=== PATIENT | male | born 1960 | race Caucasian/White ===

== ENCOUNTER 2017-08-29 09:38 | Inpatient (IN) | payer OTHER ==
[~2017-08-29] VITALS: Ht 154.9 cm; Wt 53.8 kg
[~2017-08-29 09:38] MED LIST: Amoxil400 MG/5 M PO; CEPH500 PO; Cerovite Advan1 EACH PO; Coenzyme Q10100 M1 PO; Hair, Skin & N1 EACH PO; LEVO-T112 MCG PO; LEVSOD100 PO; Miralax17 GM PO; TAMS.4ER PO
[2017-08-29] MEDS ORDERED: LEVSOD100 PO (10:10)
[2017-08-29 10:49] LABS: BASOPHILS ABSOLUTE AUTO 0.02 K/mm3 (0.00-0.23); BASOPHILS PERCENT AUTO 0 % (0-2); EOSINOPHILS PERCENT AUTO 0 % (0-6); Hematocrit 35.2 % (37.0-53.0); Hemoglobin 12.5 g/dL (13.5-17.5); IMMATURE GRAN ABSOLUTE AUTO 0.12 K/mm3 (0.00-0.10); IMMATURE GRAN PERCENT AUTO 1 % (0-1); LYMPHOCYTES ABSOLUTE AUTO 0.25 K/mm3 (0.84-5.20); LYMPHOCYTES PERCENT AUTO 1 % (21-46); MONOCYTES ABSOLUTE AUTO 0.53 K/mm3 (0.16-1.47); MONOCYTES PERCENT AUTO 3 % (4-13); Mean Corpuscular HGB 31.8 pg (26.0-34.0); Mean Corpuscular HGB Conc 35.5 g/dL (31.5-36.5); Mean Corpuscular Volume 90 fL (80-100); NEUTROPHILS ABSOLUTE AUTO 16.92 K/mm3 (1.96-9.15); NEUTROPHILS PERCENT AUTO 95 % (41-73); Platelet Count 189 K/mm3 (150-400); RDW Coefficient Variation 14.9 % (11.7-14.2); RDW Standard Deviation 49.8 fL (35.1-46.3); Red Blood Cell Count 3.93 M/mm3 (4.30-5.90); White Blood Cell Count 17.84 K/mm3 (4.00-11.30)
[2017-08-29 11:05] LABS: Alanine Aminotransfer (ALT/SGP 26 U/L (12-78); Albumin, Blood 2.7 g/dL (3.4-5.0); Albumin/Globulin Ratio 0.7 (0.8-1.8); Alk Phos 58 U/L (50-136); Anion Gap 12 mmol/L (6-16); Aspartate Aminotrans (AST/SGOT 41 U/L (12-37); Bilirubin, Total 0.6 mg/dL (0.1-1.0); Blood Urea Nitrogen 20 mg/dL (8-24); Bun/Creatinine Ratio 16.5 (12.0-20.0); CO2, Blood 24 mmol/L (21-32); Calcium, Blood 8.6 mg/dL (8.5-10.1); Chloride, Blood 92 mmol/L (98-108); Creatinine, Blood 1.21 mg/dL (0.60-1.20); Globulin, Blood 4.1 g/dL (2.2-4.0); Glomerular Filtration Rate >60 (60-); Glucose, Blood 125 mg/dL (70-99); Potassium, Blood 3.5 mmol/L (3.5-5.5); Sodium, Blood 128 mmol/L (136-145); Total Protein, Blood 6.8 g/dL (6.4-8.2)
[2017-08-29 18:23] LABS: Source, Urine Voided
[2017-08-29 18:28] LABS: Appearance, Urine Clear (Clear); Bilirubin, Urine Neg (Neg); Blood, Urine 1+ (Neg); Color, Urine Yellow (P-Yellow); Glucose Qualitative, Urine Neg (Neg); Ketones, Urine 1+ (Neg); Leukocyte Esterase, Urine Neg (Neg); Nitrite, Urine Neg (Neg); Protein, Urine 1+ (Neg); Urobilinogen, Urine NORM (Normal)
[2017-08-29 18:33] LABS: Amorphous Light (0-Heavy); Bacteria Few /hpf; Red Blood Cells, Urine 0-2 /hpf (0-2); Squamous Epithelial Cells Not Seen /hpf (Few); White Blood Cells, Urine 0-2 /hpf (0-5)
[2017-08-29 18:34] LABS: Hyaline Casts 0-2 /lpf (0-2)
[2017-08-30 05:17] LABS: Hematocrit 29.3 % (37.0-53.0); Hemoglobin 10.4 g/dL (13.5-17.5); Mean Corpuscular HGB 31.6 pg (26.0-34.0); Mean Corpuscular HGB Conc 35.5 g/dL (31.5-36.5); Mean Corpuscular Volume 89 fL (80-100); Mean Platelet Volume 9.2 fL (9.1-12.4); Platelet Count 161 K/mm3 (150-400); RDW Coefficient Variation 15.2 % (11.7-14.2); RDW Standard Deviation 49.5 fL (35.1-46.3); Red Blood Cell Count 3.29 M/mm3 (4.30-5.90); White Blood Cell Count 12.59 K/mm3 (4.00-11.30)
[2017-08-30 05:35] LABS: BAND PERCENT MAN 23 % (0-8); BASOPHILS PERCENT MAN 0 % (0-2); EOSINOPHILS PERCENT MAN 0 % (0-6); LYMPHOCYTES ABSOLUTE MAN 0.25 K/mm3 (0.84-5.20); LYMPHOCYTES PERCENT MAN 2 % (21-46); MONOCYTES PERCENT MAN 4 % (4-13); NEUTROPHILS ABSOLUTE MAN 11.83 K/mm3 (1.96-9.15); SEG NEUTROPHILS PERCENT MAN 71 % (41-73); TOTAL CELLS COUNTED 100
[2017-08-30 05:41] LABS: Alanine Aminotransfer (ALT/SGP 17 U/L (12-78); Albumin, Blood 2.1 g/dL (3.4-5.0); Albumin/Globulin Ratio 0.6 (0.8-1.8); Alk Phos 47 U/L (50-136); Anion Gap 11 mmol/L (6-16); Aspartate Aminotrans (AST/SGOT 30 U/L (12-37); Bilirubin, Total 0.4 mg/dL (0.1-1.0); Blood Urea Nitrogen 11 mg/dL (8-24); Bun/Creatinine Ratio 12.1 (12.0-20.0); CO2, Blood 20 mmol/L (21-32); Calcium, Blood 7.5 mg/dL (8.5-10.1); Chloride, Blood 99 mmol/L (98-108); Creatinine, Blood 0.91 mg/dL (0.60-1.20); Globulin, Blood 3.6 g/dL (2.2-4.0); Glomerular Filtration Rate >60 (60-); Glucose, Blood 103 mg/dL (70-99); Potassium, Blood 3.7 mmol/L (3.5-5.5); Sodium, Blood 130 mmol/L (136-145); Total Protein, Blood 5.7 g/dL (6.4-8.2)
[2017-08-31 04:55] LABS: Hematocrit 30.3 % (37.0-53.0); Hemoglobin 10.6 g/dL (13.5-17.5); Mean Corpuscular HGB 31.7 pg (26.0-34.0); Mean Corpuscular Volume 91 fL (80-100); Platelet Count 187 K/mm3 (150-400); RDW Coefficient Variation 16.1 % (11.7-14.2); RDW Standard Deviation 53.7 fL (35.1-46.3); Red Blood Cell Count 3.34 M/mm3 (4.30-5.90); White Blood Cell Count 13.29 K/mm3 (4.00-11.30)
[2017-08-31 05:21] LABS: Anion Gap 9 mmol/L (6-16); Blood Urea Nitrogen 10 mg/dL (8-24); CO2, Blood 24 mmol/L (21-32); Calcium, Blood 7.9 mg/dL (8.5-10.1); Chloride, Blood 101 mmol/L (98-108); Creatinine, Blood 0.83 mg/dL (0.60-1.20); Glomerular Filtration Rate >60 (60-); Glucose, Blood 90 mg/dL (70-99); Potassium, Blood 3.7 mmol/L (3.5-5.5); Sodium, Blood 134 mmol/L (136-145)
[2017-09-01] MEDS ORDERED: CEPH500 PO (16:41)
== END 2017-09-01 18:21 | DRG 872 ==
LOC: ER 09:38 → MEDS 09:39 → ENPENDDIS 09-01 10:59 → MEDS 09-01 18:21
PROVIDERS: Emergency Medicine; Internal Medicine
DX: A41.9 Sepsis, unspecified organism (principal); L03.312 Cellulitis of back [any part except buttock and flank]; L03.319 Cellulitis of trunk, unspecified; L03.116 Cellulitis of left lower limb; L03.115 Cellulitis of right lower limb; N17.9 Acute kidney failure, unspecified; E87.1 Hypo-osmolality and hyponatremia; E03.9 Hypothyroidism, unspecified; Q90.9 Down syndrome, unspecified; N40.0 Benign prostatic hyperplasia without lower urinary tract symptoms; D64.9 Anemia, unspecified; E87.6 Hypokalemia
CPT/HCPCS: 36415; 71046; 74176; 80048; 80053; 81001; 83605; 84443; 85025; 85027; 96361; 96374; 99285; J0690; J1650; J3480; J7030

== ENCOUNTER 2018-04-22 23:00 | Inpatient (IN) | payer OTHER ==
[~2018-04-22] VITALS: Ht 154.9 cm; Wt 59.4 kg
[2018-04-23 00:51] LABS: BASOPHILS ABSOLUTE AUTO 0.03 K/mm3 (0.00-0.23); BASOPHILS PERCENT AUTO 0 % (0-2); EOSINOPHILS PERCENT AUTO 0 % (0-6); Hematocrit 32.5 % (37.0-53.0); Hemoglobin 11.2 g/dL (13.5-17.5); IMMATURE GRAN ABSOLUTE AUTO 0.06 K/mm3 (0.00-0.10); IMMATURE GRAN PERCENT AUTO 1 % (0-1); LYMPHOCYTES PERCENT AUTO 8 % (21-46); MONOCYTES ABSOLUTE AUTO 0.37 K/mm3 (0.16-1.47); MONOCYTES PERCENT AUTO 3 % (4-13); Mean Corpuscular HGB 32.3 pg (26.0-34.0); Mean Corpuscular HGB Conc 34.5 g/dL (31.5-36.5); Mean Corpuscular Volume 94 fL (80-100); Mean Platelet Volume 9.4 fL (9.1-12.4); NEUTROPHILS ABSOLUTE AUTO 11.81 K/mm3 (1.96-9.15); NEUTROPHILS PERCENT AUTO 89 % (41-73); Platelet Count 282 K/mm3 (150-400); RDW Coefficient Variation 15.1 % (11.7-14.2); RDW Standard Deviation 52.1 fL (35.1-46.3); Red Blood Cell Count 3.47 M/mm3 (4.30-5.90); White Blood Cell Count 13.27 K/mm3 (4.00-11.30)
[2018-04-23 01:11] LABS: Alanine Aminotransfer (ALT/SGP 36 U/L (12-78); Albumin, Blood 2.5 g/dL (3.4-5.0); Albumin/Globulin Ratio 0.6 (0.8-1.8); Alk Phos 63 U/L (50-136); Anion Gap 9 mmol/L (6-16); Aspartate Aminotrans (AST/SGOT 37 U/L (12-37); Bilirubin, Total 0.5 mg/dL (0.1-1.0); Blood Urea Nitrogen 12 mg/dL (8-24); Bun/Creatinine Ratio 10.5 (12.0-20.0); CO2, Blood 28 mmol/L (21-32); Chloride, Blood 97 mmol/L (98-108); Creatinine, Blood 1.14 mg/dL (0.60-1.20); Globulin, Blood 4.3 g/dL (2.2-4.0); Glomerular Filtration Rate >60 (60-); Glucose, Blood 104 mg/dL (70-99); Potassium, Blood 3.4 mmol/L (3.5-5.5); Sodium, Blood 134 mmol/L (136-145); Total Protein, Blood 6.8 g/dL (6.4-8.2)
--- NOTE | 2018-04-23 04:06 | NUR ---
[place] of Care/Admission: Patient arrived to unit at approx 0300hr, via stretcher, accompanied by ED nurse. Transferred to ICU bed without difficulty. Denies pain, and no s/s of pain or discomfort. Pleasant and cooperative with staff, smiling, stating "I like you". Patient has Dx of Down Syndrome, and his caregivers left facility before admission to unit. Therefore, unable to assess patient's baseline mentation/orientation, but patient does appear to be at baseline r/t report from ED nurse. Patient alert, oriented to self. Verbalizes only short statements (i.e "I like you", or "I'm good".) No s/s of respiratory distress, O2-97% on RA. Heart rate shows NSR, rate- 80's. Systolic BP in 70's-80's, contacted Dr. Jeter and received order for x2 liter bolus of NS. Peripheral IV to LFA patent and intact. Peripheral IV to RAC not patent and D/C'd at this time, new IV placed to LFA. Red, diffuse, non-raised rash noted to ABD, back, and bilateral lower extremities (see pics in chart). Oriented to room and call light, left in reach. Will continue to monitor for pain, safety, comfort.
--- NOTE | 2018-04-23 06:09 | NUR ---
Shift Summary: Patient continues to appear calm and comfortable, denies pain. Systolic BP continues in 70's-80's after x2 L bolus, BP confirmed with manual assessment. Also attempted to have patient void in urinal, but he was unable to produce any urine, bladder scan showed approx 150ml, bladder soft with palpation. Again contacted Dr. Jeter and received order for x1L NS bolus, then resume fluids at 200ml/hr. Also received order for UA and U-tox when patient is able to void. Peripheral IV's remain patent and intact. Calm and cooperative with staff. Will continue to monitor for pain, safety, comfort.
--- NOTE | 2018-04-23 11:37 | NUR ---
0730 PT BP NOTED TO BE LOW AND DR RAJPUT ORDERED PICC AND LEVOPHED GTT. PT NEEDING ASSIST TO HOLD STILL WITH PICC PLACEMENT BUT WAS COOP, JUST SOMEWHAT AFRAID OF THE UNKNOWN. LR CHANGE AND LEVOPHED TO FOLLOW SOY.
[2018-04-23 17:19] LABS: Bilirubin, Urine Neg (Neg); Blood, Urine Neg (Neg); Glucose Qualitative, Urine Neg (Neg); Ketones, Urine 3+ (Neg); Leukocyte Esterase, Urine 1+ (Neg); Nitrite, Urine Neg (Neg); Protein, Urine 2+ (Neg); Source, Urine Clean Catch; Urobilinogen, Urine NORM (Normal)
[2018-04-23 17:31] LABS: U Amphetamine Screen Not Detected; U Barbituate Screen Not Detected; U Benzodiazapine Screen Not Detected; U Buprenorphine Screen Not Detected; U Cannabinoids Screen Not Detected; U Cocaine Screen Not Detected; U Methadone Screen Not Detected; U Methamphetamine Screen Not Detected; U Opiates Screen Not Detected; U Oxycodone Screen Not Detected; U Phencyclidine Screen Not Detected; U Propoxyphene Screen Not Detected
[2018-04-23 17:34] LABS: Appearance, Urine Clear (Clear); Color, Urine Yellow (P-Yellow)
[2018-04-23 17:35] LABS: Red Blood Cells, Urine 0-2 /hpf (0-2)
[2018-04-23 17:37] LABS: Bacteria Mod /hpf; Squamous Epithelial Cells Rare /hpf (Few)
--- NOTE | 2018-04-23 18:18 | NUR ---
PT IS DOWN TO 5 MCG OF LEVOPHED AND LR AT 200ML. TAKING PO AND RESTING WELL. PT WAS UP TO VOID AT BSC BUT COULD NOT VOID IN URINAL. URINE WAS STRONG SMELLING AND DARK DEVENDRA COLOR. VS NOTED AND PT REMAINS IN SR SB. W/O DISTRESS OR C/O PAIN. ONLY NOTED TO HAVE SKIN ITCHING EARLIER WHILE DR ZARAGOZA WAS IN. CAREGIVER WAS IN AND WILL BRING GLASSES AND DENTURES TOMORROW.
--- NOTE | 2018-04-23 19:00 | NUR ---
[place] of Care: Patient alert and oriented to self (baseline per Down Syndrome Dx). Denies pain, discomfort, SOB, or dyspnea. VSS, O2-98% on RA. Currently on Levophed gtt at 4mcg/min, will monitor BP and titrate as indicated. LR infusing at 200ml/hr without difficulty. PICC line patent and intact. Peripheral IV to lt wrist patent and intact. Holding Flu vaccine at this time as patient has diffuse rash, concern that current rash could mask reaction to vaccine. No change to rash noted r/t admission last NOC. Rash continues as diffuse throughout back, ABD, BLE's. Only x1 400ml void on day shift, denies need to void at this time, bladder soft upon palpation. Will continue to monitor and possibly bladder scan patient if indicated. Appears calm and comfortable, watching TV. Will continue to monitor for pain, safety, comfort.
[2018-04-24 04:08] LABS: Anion Gap 8 mmol/L (6-16); Blood Urea Nitrogen 11 mg/dL (8-24); Bun/Creatinine Ratio 13.7 (12.0-20.0); CO2, Blood 24 mmol/L (21-32); Calcium, Blood 7.4 mg/dL (8.5-10.1); Chloride, Blood 108 mmol/L (98-108); Creatinine, Blood 0.81 mg/dL (0.60-1.20); Glomerular Filtration Rate >60 (60-); Glucose, Blood 102 mg/dL (70-99); Potassium, Blood 3.8 mmol/L (3.5-5.5); Sodium, Blood 140 mmol/L (136-145)
--- NOTE | 2018-04-24 05:59 | NUR ---
Shift Summary: Patient slept on/off throughout shift. Continues to deny pain or discomfort. No change in rash noted, continues to be diffuse throughout back, ABD, BLE's. Levophed titrated down from 4mcg/min to stand-by at approx 0100hr, remained off throughout remainder of shift. BP stable, MAP's 70's-80's. X2 transfers to toilet in room to void, stand-by assist without difficulty. Total of 550ml urine output, dark yell, clear urine. Audible wheezes and c/o dyspnea at approx 0300hr, lung sounds clear and O2-96-98% at this time. Contacted Dr. Jeter and received order for prn Albuterol updrafts, and to decrease LR from 200ml/hr to 100ml/hr. X1 prn Albuterol given, effective to decrease audible wheezes. Calm and cooperative with staff, sleeping at this time. Will continue to monitor until report to day shift RN.
--- NOTE | 2018-04-24 08:50 | NUR ---
RECEIVED REPORT AND ASSUMED CARE OF PATIENT. HE IS SITTING UP IN BED, ALERT AND PLEASANT. PT HAS LR RUNNING AT 100 ML/HR AND HIS ABX STARTED. LUNG SOUNDS ARE CLEAR. PT IS ON ROOM AIR. HE STATES NO PAIN AT THIS TIME. WILL CONTINUE TO MONITOR.
--- NOTE | 2018-04-24 19:15 | NUR ---
ASSUMED PT CARE PT SITTING UP IN BED WATCHING CARTOONS. STATED HE WAS "FULL" FROM DINNER AND ATE ABOUT 75% AND DRANK 100% SUPPLEMENT DRINK. PT ABLE TO AMBULATE WITH MINIMAL ONE PERSON ASSIST. PT IS AWARE OF HIS LIMITATIONS. ALERT AND ORIENTED TO SELF, BUT CAREGIVER STATES THIS IS HIS BASELINE PER REPORTING RNJORGE.
--- NOTE | 2018-04-24 19:23 | NUR ---
PT HAD A GOOD DAY, PLEASANT AFFECT THROUGHOUT THE SHIFT. PT ENJOYS DRAWING AND WATCHING CARTOONS. NO SIGNIFICANT CHANGES. VITAL SIGNS ARE STABLE. PT IS SBA, HE GETS UP TO VOID IN BSC. WILL CONTINUE TO MONITOR AND GIVE REPORT TO FRANKLYN CASTILLO.
[2018-04-25 03:12] LABS: HIV SCREEN 4TH GENERATION WRFX Non Reactive (Non Reactive)
--- NOTE | 2018-04-25 06:24 | NUR ---
END OF SHIFT SUMMARY PT HAS SLEPT T/O ENTIRE NIGHT; ABLE TO REPOSITION SELF. RASH REMAINS TO TRUNK, BILATERAL ARMS AND LEGS. NO FEVER THIS SHIFT. PT IS VERY PLEASANT AND COOPERATIVE. FEARFUL OF CARE AT TIMES; LOTS OF EDUCATIONS AND KEEPING PT AWARE OF WHAT IS GOING ON. NO SIGNS OF ACUTE DISTRESS NOTED.
--- NOTE | 2018-04-25 18:12 | NUR ---
SHIFT SUMMARY PATIENT PLEASANT. NO ACUTE CONCERNS. AWAITING CULTURES SO PATIENT CAN BE SWITCHED TO ORAL ANTIBIOTICS. PATIENT HAS PICC IN LEFT UPPER ARM. WILL MONITOR FOR ANY CHANGES.
--- NOTE | 2018-04-26 06:47 | NUR ---
PT ALERT ABLE TO TOLERATE DIET AND ACTIVITY. UP WITH 1 MIN ASSIST TO AMB TO BR, VOIDS LARGE AMTS AND HAD BM. PT HAS ANEMIA AND HE FLUSHED STOOL BUT NOTED PALE BLOOD ON TISSUE. VSS .
--- NOTE | 2018-04-26 17:29 | NUR ---
SHIFT SUMMARY PATIENT PLEASANT. NO ACUTE CONCERNS AT THIS TIME. HE HAS BEEN SWITCHED TO ORAL ANTIBIOTICS. PICC LINE STILL IN PLACE. POTENTIAL DISCHARGE TOMORROW.
--- NOTE | 2018-04-27 08:08 | NUR ---
04/27/18 0615 CHEERFUL AND DENIES ANY PAIN. TAKING FLUIDS WELL. VITALS STABLE. UNEVENTFUL NIGHT.
--- NOTE | 2018-04-27 08:45 | NUR ---
PT PLEASANT COOP DEV DELAY, ABLE TO TELL ME NAME VERY HARD TO UNDERSTAND. H/R REG, NO MURMER NOTED. NO TELE. LUNGS CLEAR, RESP EASY, UNLABORED. ON R.A. BT X4 LAST BM THIS AM. VOIDS PER BATHROOM. 1 ASST. BED IN LOW POSITION, CALL LITE IN REACH, BED ALARM ON FOR SAFETY
[2018-04-27] MEDS ORDERED: CEFP200 PO (10:05)
== END 2018-04-27 13:39 | disposition home or self-care (01) | DRG 871 ==
LOC: ER 23:00 → ICUW 04-23 02:02 → ICUE 04-23 02:02 → MEDS 04-25 14:25 → ENPENDDIS 04-27 11:19 → MEDS 04-27 13:39
PROVIDERS: Internal Medicine; Internal Medicine Infectious Disease; Physician Assistant; ADMIT Hospitalist
PROC: 02HV33Z Insertion of Infusion Device into Superior Vena Cava, Percutaneous Approach (ICD-10-PCS; principal; 2018-04-23)
PROC: B548ZZA Ultrasonography of Superior Vena Cava, Guidance (ICD-10-PCS; 2018-04-23)
DX: A41.9 Sepsis, unspecified organism (principal); R65.21 Severe sepsis with septic shock; E87.1 Hypo-osmolality and hyponatremia; E87.6 Hypokalemia; E03.9 Hypothyroidism, unspecified; N40.0 Benign prostatic hyperplasia without lower urinary tract symptoms; I95.9 Hypotension, unspecified; Q90.9 Down syndrome, unspecified; Z79.899 Other long term (current) drug therapy
CPT/HCPCS: 36415; 36569; 80048; 80053; 80202; 81001; 83605; 85025; 87040; 87070; 87086; 87389; 90686; 94760; 96361; 96365; 96367; 96375; 99285-25; C1751; J0696; J1650; J1885; J3370; J3480; J7030; J7060; J7120

== ENCOUNTER 2019-05-28 01:01 | Inpatient (IN) | payer OTHER ==
[~2019-05-28] VITALS: Ht 144.8 cm; Wt 53.0 kg
[~2019-05-28 01:01] MED LIST changes: +CEFP200 PO; +LEVSOD112 PO
[2019-05-28] MEDS ORDERED: Ascorbic Acid500 M2 PO (01:13)
[2019-05-28 01:49] LABS: BASOPHILS ABSOLUTE AUTO 0.03 K/mm3 (0.00-0.23); BASOPHILS PERCENT AUTO 0 % (0-2); EOSINOPHILS PERCENT AUTO 0 % (0-6); Hematocrit 34.7 % (37.0-53.0); Hemoglobin 12.2 g/dL (13.5-17.5); IMMATURE GRAN ABSOLUTE AUTO 0.07 K/mm3 (0.00-0.10); IMMATURE GRAN PERCENT AUTO 1 % (0-1); LYMPHOCYTES ABSOLUTE AUTO 0.72 K/mm3 (0.84-5.20); LYMPHOCYTES PERCENT AUTO 5 % (21-46); MONOCYTES ABSOLUTE AUTO 0.55 K/mm3 (0.16-1.47); MONOCYTES PERCENT AUTO 4 % (4-13); Mean Corpuscular HGB 32.5 pg (26.0-34.0); Mean Corpuscular HGB Conc 35.2 g/dL (31.5-36.5); Mean Corpuscular Volume 93 fL (80-100); Mean Platelet Volume 9.2 fL (9.1-12.4); NEUTROPHILS PERCENT AUTO 91 % (41-73); Platelet Count 223 K/mm3 (150-400); RDW Coefficient Variation 13.7 % (11.7-14.2); RDW Standard Deviation 46.8 fL (35.1-46.3); Red Blood Cell Count 3.75 M/mm3 (4.30-5.90); White Blood Cell Count 14.37 K/mm3 (4.00-11.30)
[2019-05-28 01:51] LABS: Alanine Aminotransfer (ALT/SGP 19 U/L (12-78); Albumin, Blood 2.8 g/dL (3.4-5.0); Albumin/Globulin Ratio 0.7 (0.8-1.8); Alk Phos 52 U/L (50-136); Anion Gap 9 mmol/L (6-16); Aspartate Aminotrans (AST/SGOT 27 U/L (12-37); Bilirubin, Total 0.5 mg/dL (0.1-1.0); Blood Urea Nitrogen 11 mg/dL (8-24); Bun/Creatinine Ratio 12.8 (12.0-20.0); CO2, Blood 25 mmol/L (21-32); Chloride, Blood 94 mmol/L (98-108); Creatinine, Blood 0.86 mg/dL (0.60-1.20); Globulin, Blood 3.9 g/dL (2.2-4.0); Glomerular Filtration Rate >60 (60-); Glucose, Blood 120 mg/dL (70-99); Potassium, Blood 3.5 mmol/L (3.5-5.5); Sodium, Blood 128 mmol/L (136-145); Total Protein, Blood 6.7 g/dL (6.4-8.2)
[2019-05-28 03:29] LABS: Magnesium, Blood 1.9 mg/dL (1.6-2.4); Troponin I 0.021 ng/mL (0.000-0.040)
[2019-05-28 04:30] LABS: Influenza A Negative (NEGATIVE); Influenza B Negative (NEGATIVE)
--- NOTE | 2019-05-28 08:00 | NUR ---
ARIVAL TO ICU: PT ARIVES TO ICU VIA STRETCHER. PT APPEARS TO BE ALERT SAYING YES AND NO. THIS RN ASKS PT IF HE WALKS AT HOME TO WHICH PT STATES "YES" PT RESPONDS WITH "YES" WHEN ASKED IF HE WOULD LIKE TO STAND AND TRANSFER TO THE ICU BED. TRANSPORT PILOT ASKS PT IF THE ROOM IS GREEN TO WHICH THE PT STATES "YES" THE ROOM IS NOT GREEN A FEW MORE QUESTIONS ARE ASKED AND PT ANSWERS YES TO ALL OF THEM IT WAS DETERMINED TO TRANSFER PT BY SLIDING OVER TO ICU BED. PT APPEARED TO HANDLE WELL. PT IS NOTED TO HAVE A SOLID RED RASH ON HIS LOW ABD THAT TRAVELS UP AND DOWN INTO PATCHES. MARKED RASH ON R LEG WITH BLACK TO OUTLINE RED TO WATCH FOR SPREADING OF THE RASH. ATTEMPTED TO TAKE PICUTRES, BUT D/T LOW BATTERY CAMERA WOULD NOT TAKE PICUTRES. WILL TAKE PICUTRES SOON POSSIBLE. EDUCATED PT ON HOW TO USE CALL LIGHT AND TV CONTROLS. WILL CONTINUE TO MONITOR AND ASSESS FURTHER.
--- NOTE | 2019-05-28 09:45 | NUR ---
CALLED LIVING FACILITY: CHIEF RADIATION THERAPIST CALLED TO AQUIRE PATIENTS MEDICATION LIST SO WE CAN UPDATE. RN WAS NOTIFIED FAMILY/STAFF WILL BE COMING IN AND WILL BRING THE LIST WHEN THEY ARIVE.
--- NOTE | 2019-05-28 16:12 | NUR ---
IVF: TALKED TO DR TAPIA TO GIVE UPDATE ON IVF ALMOST BEING COMPLETE AND PT BP STILL ON THE LOW SIDE. RECEIVED ORDER FOR CONTINUOUS NS @ 100 ML/HR.
--- NOTE | 2019-05-28 21:33 | NUR ---
[place] OF CARE ASSUMED CARE OF PT @ 1900, PT ALERT AND ORIENTED TO SELF, SURROUNDINGS AND FOLLOWING DIRECTIONS. PT WITH HX OF DEVELOPMENTAL DELAY, DIFFICULT TO ASSESS PTS UNDERSTANDING, ANSWERS SIMPLE YES/NO QUESTIONS PREDOMINANTLY WITH "YES" ANSWER. WHILE ASSESSING PAIN, PT SAID "YES" TO HAVING PAIN AND WAS ABLE TO POINT TO IV SITE WHEN ASKED WHERE THE PAIN WAS LOCATED. HOWEVER WHEN ASKED ABOUT LOCATION, PT REPORTS KNOWING WHERE HE IS AND ANSWERS YES TO MULTIPLE LOCATIONS- ANSWERS YES TO BOTH BEING IN [facility] AND H[facility]. PT O2 SATURATIONS MAINTAINED>90% ON RA, MONITOR SHOWS SINUS RHYTHM WITH HR 80'S, BP STABLE, PT AFEBRILE. PT AMBULATES TO BEDSIDE TOILET WITH SBA. SKIN C/D/I WITH RED BLANCHABLE RASH THAT WRAPS AROUND HIS BACK AND ABD AREA AND DOWN TO UPPER THIGHS, RASH DOES NOT APPEAR TO BOTHER PT, NOT PAINFUL WHEN TOUCHED, NO ITCHING/SCRATCH BAÑUELOS NOTED. CALL LIGHT WITHIN REACH, PT EDUCATED GLOBAL PROGRAM DIRECTOR LIGHT USE, BED ALARM ON.
[2019-05-29 03:32] LABS: BASOPHILS ABSOLUTE AUTO 0.02 K/mm3 (0.00-0.23); BASOPHILS PERCENT AUTO 0 % (0-2); EOSINOPHILS ABSOLUTE AUTO 0.03 K/mm3 (0.00-0.68); EOSINOPHILS PERCENT AUTO 0 % (0-6); Hematocrit 30.9 % (37.0-53.0); Hemoglobin 10.5 g/dL (13.5-17.5); IMMATURE GRAN ABSOLUTE AUTO 0.04 K/mm3 (0.00-0.10); IMMATURE GRAN PERCENT AUTO 0 % (0-1); LYMPHOCYTES PERCENT AUTO 12 % (21-46); MONOCYTES PERCENT AUTO 6 % (4-13); Mean Corpuscular HGB 32.4 pg (26.0-34.0); Mean Corpuscular Volume 95 fL (80-100); Mean Platelet Volume 9.3 fL (9.1-12.4); NEUTROPHILS ABSOLUTE AUTO 8.85 K/mm3 (1.96-9.15); NEUTROPHILS PERCENT AUTO 82 % (41-73); Platelet Count 209 K/mm3 (150-400); RDW Coefficient Variation 14.6 % (11.7-14.2); RDW Standard Deviation 51.4 fL (35.1-46.3); Red Blood Cell Count 3.24 M/mm3 (4.30-5.90); White Blood Cell Count 10.84 K/mm3 (4.00-11.30)
--- NOTE | 2019-05-29 03:40 | NUR ---
LAB TO ROOM FOR AM LAB DRAWS, NOTIFIED THAT PT HAD PULLED OUT LFA IV AND TAKEN OFF TELEMETRY LEADS. LEADS REPLACED AND NEW IV INSERTED TO RFA.
--- NOTE | 2019-05-29 06:05 | NUR ---
ENTERED PTS ROOM, PT DC'D LFA IV. CALL PLACED TO DR GLEZ REGARDING NEED FOR IV. SEE NEW ORDER.
--- NOTE | 2019-05-29 06:32 | NUR ---
SHIFT SUMMARY NO ACUTE CHANGES THIS SHIFT. PT UP FOR ENTIRE SHIFT, WATCHING TV. PT REMAINS ON RA, MONITOR SHOWS NSR HR 70'S-80'S. PT PULLED PERIPHERAL IV x2 THIS SHIFT, SEE PREVIOUS NOTE. PT TOLERATING PO INTAKE AND SWALLOWING PILLS WHOLE. PT WITH BM x2, ONE LOOSE STOOL, AMBULATES WELL WITH SBA ASSISTANCE AND VERBAL CUES. CALL LIGHT WITHIN REACH.
[2019-05-29] MEDS ORDERED: CEPH500 PO (09:43)
--- NOTE | 2019-05-29 09:59 | NUR ---
ASSUMED CARE OF PATIENT AT 0700. PT IS AWAKE AND ALERT, GARBLED SPEECH, ANSWERS ALL QUESTIONS WITH "YES". MOVES ALL EXTREMITIES, WALKED TO TOILET WITH SBA. RASH ON TORSO AND BLE IS ERYTHEMATOUS, NO OPEN AREAS OR WEEPING. VSS, AFEBRILE. PLAN IS TO D/C HOME TODAY.
--- NOTE | 2019-05-29 10:57 | NUR ---
PATIENT DISCHARGED TO HOME, TRANSPORTED VIA [facility] AT 1051. HAS ALL BELONGINGS. NEW RX CALLED IN TO [facility] IN [place]. RESIDENTIAL NOTIFIED OF PT DISCHARGE AND NEW RX TO BE PICKED UP.
== END 2019-05-29 10:55 | disposition home or self-care (01) | DRG 872 ==
LOC: ER 01:01 → ICUE 05:17 → ICUW 05:17 → ICUE 07:27 → ER 07:27 → ICUE 08:13
PROVIDERS: Emergency Medicine; ADMIT Hospitalist
DX: A41.9 Sepsis, unspecified organism (principal); E87.1 Hypo-osmolality and hyponatremia; L03.311 Cellulitis of abdominal wall; R65.20 Severe sepsis without septic shock; Q90.9 Down syndrome, unspecified; N40.0 Benign prostatic hyperplasia without lower urinary tract symptoms; E03.9 Hypothyroidism, unspecified; I95.9 Hypotension, unspecified; E86.0 Dehydration
CPT/HCPCS: 36415; 71045; 80053; 82533; 83605; 83735; 84145; 84484; 85025; 87040; 87804; 90686; 93005; 93010; 96361; 96365; 96367; 99285-25; A9270-GY; G0008; J0696; J1650; J3370; J7030

== ENCOUNTER 2019-07-13 18:12 | Emergency (ER) | payer OTHER ==
[~2019-07-13] VITALS: Ht 157.5 cm; Wt 56.7 kg
[~2019-07-13 18:12] MED LIST changes: +Ascorbic Acid500 M2 PO
[2019-07-13] MEDS ORDERED: Cerovite Silve1 EACH PO (18:30)
[2019-07-13] MEDS ORDERED: ABAT250V (18:30)
== END 2019-07-13 20:15 | disposition home or self-care (01) ==
LOC: ER 18:12
DX: T17.928A Food in respiratory tract, part unspecified causing other injury, initial encounter (principal); E03.9 Hypothyroidism, unspecified; N40.0 Benign prostatic hyperplasia without lower urinary tract symptoms; D64.9 Anemia, unspecified; Q90.9 Down syndrome, unspecified; Z79.899 Other long term (current) drug therapy
CPT/HCPCS: 71250; 99284-25

== ENCOUNTER 2021-04-22 17:23 | Emergency (ER) | payer OTHER ==
[~2021-04-22] VITALS: Ht 152.4 cm; Wt 54.4 kg
[~2021-04-22 17:23] MED LIST changes: +ABAT250V; +Cerovite Silve1 EACH PO
== END 2021-04-22 18:37 | disposition home or self-care (01) ==
LOC: ER 17:23
DX: Z00.00 Encounter for general adult medical examination without abnormal findings (principal); E03.9 Hypothyroidism, unspecified; D64.9 Anemia, unspecified; Z79.899 Other long term (current) drug therapy
CPT/HCPCS: 71045; 99283-25

== ENCOUNTER → 2022-09-10 | Outpatient (CLI) | payer OTHER ==
[~2022-09-10] MED LIST changes: +METPRE4DP PO
== END ==
LOC: LAB SHORT 08:19 → LAB 08:19
DX: B35.1 Tinea unguium (principal); L60.2 Onychogryphosis
CPT/HCPCS: 88305; 88312

== ENCOUNTER 2022-09-15 16:22 | Emergency (ER) | payer OTHER ==
[~2022-09-15] VITALS: Ht 154.9 cm; Wt 54.4 kg
[~2022-09-15 16:22] MED LIST changes: -METPRE4DP PO
[2022-09-15 16:33] VITALS: BP 132/78
[2022-09-15 17:26] LABS: BASOPHILS ABSOLUTE AUTO 0.06 K/mm3 (0.00-0.23); BASOPHILS PERCENT AUTO 1 % (0-2); EOSINOPHILS ABSOLUTE AUTO 0.01 K/mm3 (0.00-0.68); EOSINOPHILS PERCENT AUTO 0 % (0-6); Hemoglobin 14.8 g/dL (13.5-17.5); IMMATURE GRAN ABSOLUTE AUTO 0.03 K/mm3 (0.00-0.10); IMMATURE GRAN PERCENT AUTO 0 % (0-1); LYMPHOCYTES ABSOLUTE AUTO 1.45 K/mm3 (0.84-5.20); LYMPHOCYTES PERCENT AUTO 14 % (21-46); MONOCYTES ABSOLUTE AUTO 0.85 K/mm3 (0.16-1.47); MONOCYTES PERCENT AUTO 8 % (4-13); Mean Corpuscular HGB 33.1 pg (26.0-34.0); Mean Corpuscular HGB Conc 35.2 g/dL (31.5-36.5); Mean Corpuscular Volume 94 fL (80-100); Mean Platelet Volume 8.8 fL (9.1-12.4); NEUTROPHILS ABSOLUTE AUTO 8.01 K/mm3 (1.96-9.15); NEUTROPHILS PERCENT AUTO 77 % (41-73); Platelet Count 268 K/mm3 (150-400); RDW Coefficient Variation 14.1 % (11.7-14.2); RDW Standard Deviation 49.1 fL (35.1-46.3); Red Blood Cell Count 4.47 M/mm3 (4.30-5.90); White Blood Cell Count 10.41 K/mm3 (4.00-11.30)
[2022-09-15 17:29] LABS: Influenza A, PCR NEGATIVE (NEGATIVE); Influenza B, PCR NEGATIVE (NEGATIVE); Resp Syncytial Virus, PCR NEGATIVE (NEGATIVE); SARS-Cov-2 (COVID-19) PCR, MMC NEGATIVE (NEGATIVE)
[2022-09-15 17:42] LABS: Albumin, Blood 3.2 g/dL (3.4-5.0); Albumin/Globulin Ratio 0.7 (0.8-1.8); Bilirubin, Total 0.5 mg/dL (0.1-1.0); Bun/Creatinine Ratio 12.2 (12.0-20.0); Calcium, Blood 9.2 mg/dL (8.5-10.1); Creatinine, Blood 0.74 mg/dL (0.60-1.20); Globulin, Blood 4.5 g/dL (2.2-4.0); Potassium, Blood 3.6 mmol/L (3.5-5.5); Total Protein, Blood 7.7 g/dL (6.4-8.2)
[2022-09-15] MEDS ORDERED: METPRE4DP PO (18:11)
== END 2022-09-15 18:28 | disposition home or self-care (01) ==
LOC: ER 16:22
PROVIDERS: Student in an Organized Health Care Education/Training Program
DX: J20.9 Acute bronchitis, unspecified (principal); Q90.9 Down syndrome, unspecified; Z20.822 Contact with and (suspected) exposure to COVID-19
CPT/HCPCS: 0241U; 31720; 71046; 80053; 83880; 85025; 94640; 96374; 99284-25; A9270; J2930

== ENCOUNTER 2023-04-27 07:28 | Emergency (ER) | payer OTHER ==
[~2023-04-27] VITALS: Ht 160 cm; Wt 61.2 kg
[~2023-04-27 07:28] MED LIST changes: +METPRE4DP PO
[2023-04-27 07:52] VITALS: BP 99/62
[2023-04-27] MEDS ORDERED: ATORVASTATIN CA20 MG PO (08:06)
[2023-04-27] MEDS ORDERED: [UNRECOGNIZED DRUG - CODE] PO (08:06)
== END 2023-04-27 08:25 | disposition home or self-care (01) ==
LOC: ER 07:28
DX: S00.83XA Contusion of other part of head, initial encounter (principal); Q90.9 Down syndrome, unspecified; G30.9 Alzheimer's disease, unspecified; F02.80 Dementia in other diseases classified elsewhere, unspecified severity, without behavioral disturbance, psychotic disturbance, mood disturbance, and anxiety; E03.9 Hypothyroidism, unspecified; W18.30XA Fall on same level, unspecified, initial encounter; Y92.008 Other place in unspecified non-institutional (private) residence as the place of occurrence of the external cause; Z79.899 Other long term (current) drug therapy
CPT/HCPCS: 93005; 93010; 99284-25